=== PATIENT | female | born 1950 | race Caucasian/White ===

== ENCOUNTER → 2016-06-04 | Outpatient (CLI) | payer MEDICAID ==
[2016-06-04 09:12] LABS: HEMOGLOBIN 17.5 g/dL (12.2-16.2); LYMPH # 1.2 K/mm3 (0.7-4.5); LYMPH % 18.3 % (10-50.0)
[2016-06-04 09:27] LABS: URINE BILIRUBIN - DIPSTICK NEGATIVE (NEG); URINE BLOOD NEGATIVE (NEG)
[2016-06-04 10:47] LABS: BUN 12 mg/dL (7-18)
[2016-06-04 10:48] LABS: GFR (ESTIMATED) 84 ML/MIN (59-)
--- NOTE | 2016-06-04 12:07 | RADIOLOGY REPORT PS360 ---
CHEST(2 VIEWS-NOT PORTABLE) HISTORY: DMII, HTN, OBESITY ORDERING PHYSICIAN: WEST HUDSON PATIENT AGE: 65 years COMPARISON: 10/03/2013 FINDINGS: There is mild cardiomegaly without failure. Lungs are clear bilaterally. Mild degenerative changes are present in the thoracic spine. No acute bony anomalies.. The lungs are clear without infiltrates, suspicious nodules, or pleural effusions. No acute bony abnormalities. IMPRESSION: Mild cardiomegaly otherwise negative. No significant change
[2016-06-05 09:42] LABS: Creatinine, Urine 89.7 mg/dL (Not Estab.); Microalbumin, Urine 161.9 ug/mL (Not Estab.)
== END ==
LOC: LAB 08:50 → RAD 08:50
PROVIDERS: Family Medicine
DX: E11.9 Type 2 diabetes mellitus without complications (principal); I10 Essential (primary) hypertension; E66.9 Obesity, unspecified

== ENCOUNTER → 2016-07-08 | Outpatient (CLI) | payer MEDICAID ==
[2016-07-08 14:31] LABS: LYMPH # 1.1 K/mm3 (0.7-4.5); LYMPH % 18.8 % (10-50.0)
== END ==
LOC: CARL-LAB 07:19
PROVIDERS: Family Medicine
DX: D75.1 Secondary polycythemia (principal)